=== PATIENT | female | born 1960 | race Two or more races ===

== ENCOUNTER 2021-01-04 19:53 | Emergency (ER) | payer MEDICARE, SELFPAY ==
--- NOTE | ~2021-01-04 | XR_ITS ---
EXAMINATION: XR LUMBOSACRAL SPINE CLINICAL INFORMATION: L4-L5 pain COMPARISON: None TECHNIQUE: Three views of the lumbosacral spine. FINDINGS: Degenerative changes noted throughout the lumbosacral spine. Disc space narrowing most marked at L2-L3. There is grade 1 anterolisthesis of L5 upon S1. Multiple surgical clips noted in the left abdomen and pelvis. XR/XR lumbar spine 2-3V IMPRESSION: Degenerative changes lumbosacral spine. Grade 1 anterolisthesis of L5 upon S1.
[2021-01-04 20:08] VITALS: BP 127/79; PULSE 86; RESP 18; TEMP 36.8; O2SAT 95; BMI 23.8
--- NOTE | 2021-01-04 21:26 | ED.BACK ---
HPI - Back Pain/Injury General Chief Complaint: Back Pain/Injury Stated Complaint: Lower back pain Time Seen by Provider: 01/04/21 21:25 Source: patient Mode of arrival: ambulatory Limitations: no limitations History of Present Illness HPI Narrative: Patient lifting and pushing fence about 2 weeks ago since then noticed pain in the right lower back radiating to the right leg with no prior history of back problems. Patient denied any incontinence of bowels or urine. No paresthesia no motor weakness pain gets worse when patient goes upstairs, no fever no chills no urinary complaints Related Data Previous Rx's Medication Instructions Recorded cyclobenzaprine 10 mg PO Q8H #20 tab 01/04/21 oxycodone 5 mg PO Q6H PRN #20 tab 01/04/21 prednisone 40 mg PO DAILY #10 tab 01/04/21 Allergies Allergy/AdvReac Type Severity Reaction Status Date / Time aspirin [ASPIRIN] Allergy Unknown STOMACH Verified 01/04/21 20:07 UPSET lactose [LACTOSE] Allergy Unknown DIARRHEA,PA Verified 01/04/21 20:07 IN Sulfa (Sulfonamide Allergy Unknown ANGIOEDEMA Verified 01/04/21 20:07 Antibiotics) [SULFA (SULFONAMIDE ANTIBIOTICS)] venlafaxine [From EFFEXOR] Allergy Unknown TONGUE Verified 01/04/21 20:07 SWELLING Review of Systems Review of Systems: Constitutional : No Weight loss, No Fever, No Chills ENT/Mouth : No sore throat, No Rhinorrhea Eyes: No Eye Pain, No Swelling Cardiovascular : No Chest Pain, no palpitations Respiratory : No Cough, No Sputum, no shortness of breath Gastrointestinal : no Nausea, No Vomiting, No Diarrhea, No abdominal Pain, no black stools Genitourinary : No Dysuria, No Urinary Frequency Musculoskeletal : No joint pain, No Myalgias, No Joint Swelling Skin : No Skin Lesions, No rash Neuro : No Weakness, No Numbness, No Dizziness, No Headache Psych : No Anxiety/Panic, No Depression Heme/Lymph: No Bruising, No Lymphadenopathy Endocrine : No Polyuria, No Polydipsia All other systems reviewed and are negative [facility] Past Medical History Surgical History H/O hernia repair H/O: hysterectomy Social History Social History Advance Directives: No Advance Directives Information Provided: Yes Physical Exam Vital Signs: Vital Signs: Last Vital Signs Temp 98.2 F 01/04/21 20:08 Pulse 86 01/04/21 20:08 Resp 20 01/04/21 22:26 BP 127/79 01/04/21 20:08 Pulse Ox 95 01/04/21 20:08 Body Mass Index 23.8 Const: General: well developed, alert and in distress moderate Orientation/consciousness: patient oriented x3 HENMT: Head: Yes normocephalic Eyes: General: appearance normal, both eyes and all related structures Neck: Neck: Yes normal visual inspection and Yes full ROM Chest: Chest palpation & inspection: normal inspection of the chest Resp: Effort & Inspection: normal respiratory effort Auscultation: clear to auscultation bilaterally, no crackles and no rales Cardio: Jugular venous distension: no JVD Palpation: normal PMI Rate: regular rate Rhythm: regular rhythm Heart sounds: S1 normal heart sound present and S2 normal heart sound present Peripheral pulses: Peripheral pulses 2+ throughout GI: Inspection: Yes normal to inspection Palpation (GI): Soft to palpation and nontender Auscultation: normal bowel sounds : General: Yes no CVA tenderness Back/Spine/Pelvis: Back: no CVA tenderness Thoracic/Lumbar Spine: straight leg raise positive right at 50 degrees Pelvis: sciatic notch tenderness on the right Back/spine/pelvis image: 1. R sciatic notch tenderness no focal spinal tenderness Skin: General skin exam: no rashes or lesions noted Neuro: General: patient oriented x3, gait normal and no focal motor deficits Extrem: General: Yes normal to inspection MDM - Back Pain/Injury MDM Narrative Medical decision making narrative: Patient with right sciatic pain x-ray negative for any acute pathology likely from [facility] from muscle spasm. Will discharge patient home on pain medication muscle relaxant and short course of prednisone patient is feeling much better after pain medication the ER Differential Diagnosis Differential diagnosis: Likely strain of lumbar region Discharge Plan Discharge Clinical Impression: Sciatica Qualifiers: Laterality: right Qualified Code(s): M54.31 - Sciatica, right side Patient Disposition: Home, Self-Care Instructions: Sciatica (ED) Additional Instructions: Rest at home Take pain medication as advised. Follow up with PCP if not better Prescriptions: New cyclobenzaprine 10 mg tablet 10 mg PO Q8H Qty: 20 RF: 0 oxycodone 5 mg tablet 5 mg PO Q6H PRN (Reason: pain) Qty: 20 RF: 0 prednisone 20 mg tablet 40 mg PO DAILY Qty: 10 RF: 0
--- NOTE | 2021-01-04 21:47 | PC.NURSE ---
Patient away for imaging. Plan to medicate upon return to ED bed 16.
[2021-01-04 22:26] VITALS: RESP 20
[2021-01-04] MEDS: Morphine Sulfate 4 MG/ML CARTRIDGE IM (22:26)
[2021-01-04] MEDS: dexAMETHasone 2 MG TABLET 10 MG PO (22:27)
[2021-01-04] MEDS: Cyclobenzaprine HCl 10 MG TABLET PO (22:27)
== END 2021-01-04 23:30 | disposition home or self-care (01) ==
PROVIDERS: Emergency Provider Internal Medicine; PCP Internal Medicine Geriatric Medicine
DX: M54.41 Lumbago with sciatica, right side (principal)
CPT/HCPCS: 72100; 96372; 99283; 99284; J2270; J8540

== ENCOUNTER 2022-01-09 10:08 | Outpatient (REF) | payer OTHER, SELFPAY ==
--- NOTE | ~2022-01-09 | XR_ITS ---
EXAMINATION: XR CHEST CLINICAL INFORMATION: Acute bronchitis, fever, chills and SOB COMPARISON: None TECHNIQUE: 2 views of the chest were obtained. FINDINGS: The lungs are well-expanded and clear. The heart size and pulmonary vascularity is normal. There is platelike atelectasis right middle lobe. No gross bony abnormality seen. XR/XR chest 2V IMPRESSION: Platelike atelectasis right middle lobe.
== END 2022-01-09 10:09 | disposition home or self-care (01) ==
LOC: HO.XRAY 10:08
PROVIDERS: Absent Provider Internal Medicine Geriatric Medicine; PCP Internal Medicine Geriatric Medicine; Visit Provider Emergency Medicine
DX: J20.9 Acute bronchitis, unspecified (principal)
CPT/HCPCS: 71046

== ENCOUNTER 2022-12-03 11:33 | Outpatient (REF) | payer OTHER, SELFPAY ==
--- NOTE | ~2022-12-03 | XR_ITS ---
EXAMINATION: XR ELBOW, LEFT CLINICAL INFORMATION: Pain COMPARISON: None available. TECHNIQUE: AP, lateral, and oblique views of the left elbow. FINDINGS: The bones and soft tissues are normal. No fracture or joint effusion. Alignment is anatomic. Joint spaces are maintained. XR/XR elbow LT 2V IMPRESSION: No significant osseous changes to explain patient's pain symptoms.
== END 2022-12-03 11:34 | disposition home or self-care (01) ==
LOC: HO.XRAY 11:33
PROVIDERS: PCP Internal Medicine Geriatric Medicine; Visit Provider Internal Medicine Geriatric Medicine
DX: M25.522 Pain in left elbow (principal)
CPT/HCPCS: 73070

== ENCOUNTER 2023-04-15 11:30 | Outpatient (REF) | payer OTHER, SELFPAY ==
[2023-04-15 13:46] LABS: MANUAL DIFF FLAG NO
[2023-04-15 13:57] LABS: Basophils Absolute Auto 0.1 X10*3/uL (0.0-0.2); Basophils Percent Auto 0.8 % (0-2); Eosinophils Absolute Auto 0.3 X10*3/uL (0.0-0.4); Eosinophils Percent Auto 3.4 % (0-4); Hematocrit 41.2 % (37.0-47.0); Imm Gran Abs Auto 0.03 X10*3/uL (0.00-0.03); Imm Gran Pct Auto 0.3 % (0.0-0.4); Lymphocytes Absolute Auto 3.2 X10*3/uL (1.2-4.9); Lymphocytes Percent Auto 35.5 % (20-40); Mean Corpuscular HGB Conc 31.6 g/dl (31.0-35.0); Mean Corpuscular Hemoglobin 29.5 pg (27.0-33.0); Mean Corpuscular Volume 93.6 fL (80.0-98.0); Mean Platelet Volume 10.2 fL (9.4-12.3); Monocytes Absolute Auto 0.5 X10*3/uL (0.1-1.2); Monocytes Percent Auto 5.9 % (2-11); Neutrophils Absolute Auto 4.9 x10*3/uL (2.0-8.3); Neutrophils Percent Auto 54.1 % (45-73); Platelet Count 320 X10*3/uL (160-400)
[2023-04-15 14:55] LABS: Alanine Aminotransferase 20 U/L (0-31); Albumin Level 4.1 g/dL (3.5-5.0); Alkaline Phosphatase 104 U/L (39-117); Anion Gap 12 (12-20); Aspartate Amino Transferase 20 U/L (5-31); Bilirubin Total 0.5 mg/dL (0.0-1.0); Blood Urea Nitrogen 16 mg/dL (9-16); Calcium 10.1 mg/dL (8.4-10.2); Carbon Dioxide 27 mmol/L (22-29); Chloride 107 mmol/L (96-108); Estimated Glomerular Filt Rate > 60; Glucose Random 81 mg/dL (60-115); Iron 166 mcg/dL (30-160); Percent Iron Saturation 39 % (15-50); Potassium 4.4 mmol/L (3.3-5.1); Sodium 142 mmol/L (135-145); Total Iron Binding Capacity 422 mcg/dL (228-428); Total Protein 6.9 g/dL (6.5-8.0); Unsaturated Iron Binding 256 ug/dL
[2023-04-15 15:02] LABS: Folate 11.3 ng/mL (> or = 4.0); Vitamin B12 851 pg/mL (200-900)
[2023-04-17 21:53] LABS: TS Negative Control Passed; TS Panel A 0; TS Panel B 4; TS Positive Control Passed; TSpotTB Negative (Negative)
== END 2023-04-15 11:31 | disposition home or self-care (01) ==
LOC: HO.HHCL 11:30
PROVIDERS: Visit Provider Internal Medicine Geriatric Medicine
DX: M25.562 Pain in left knee (principal); M25.561 Pain in right knee; R29.6 Repeated falls; Z98.84 Bariatric surgery status; Z11.1 Encounter for screening for respiratory tuberculosis
CPT/HCPCS: 36415; 80053; 82607; 82746; 83540; 84425; 85025; 86481

== ENCOUNTER 2023-04-16 10:22 | Outpatient (REF) | payer OTHER, SELFPAY ==
[2023-04-19 04:49] LABS: TS Negative Control Passed; TS Panel A 0; TS Panel B 1; TS Positive Control Passed; TSpotTB Negative (Negative)
[2023-04-21 22:03] LABS: Vitamin B1 8 nmol/L (8-30)
== END 2023-04-16 10:23 | disposition home or self-care (01) ==
LOC: HO.HHCL 10:22
PROVIDERS: Visit Provider Internal Medicine Geriatric Medicine
DX: Z11.1 Encounter for screening for respiratory tuberculosis (principal); M25.561 Pain in right knee; M25.562 Pain in left knee; R29.6 Repeated falls; Z98.84 Bariatric surgery status
CPT/HCPCS: 36415; 84425; 86481

== ENCOUNTER 2023-12-29 08:23 | Outpatient (REF) | payer OTHER, SELFPAY ==
[2023-12-29 11:34] LABS: MANUAL DIFF FLAG NO
[2023-12-29 11:43] LABS: Basophils Absolute Auto 0.1 X10*3/uL (0.0-0.2); Basophils Percent Auto 0.7 % (0-2); Eosinophils Absolute Auto 0.4 X10*3/uL (0.0-0.4); Eosinophils Percent Auto 4.5 % (0-4); Hematocrit 42.3 % (37.0-47.0); Hemoglobin 14.1 g/dl (12.0-16.0); Imm Gran Abs Auto 0.02 X10*3/uL (0.00-0.03); Imm Gran Pct Auto 0.2 % (0.0-0.4); Lymphocytes Absolute Auto 2.5 X10*3/uL (1.2-4.9); Lymphocytes Percent Auto 28.8 % (20-40); Mean Corpuscular HGB Conc 33.3 g/dl (31.0-35.0); Mean Corpuscular Hemoglobin 30.9 pg (27.0-33.0); Mean Corpuscular Volume 92.6 fL (80.0-98.0); Mean Platelet Volume 10.3 fL (9.4-12.3); Monocytes Absolute Auto 0.5 X10*3/uL (0.1-1.2); Monocytes Percent Auto 5.5 % (2-11); Neutrophils Absolute Auto 5.3 x10*3/uL (2.0-8.3); Neutrophils Percent Auto 60.3 % (45-73); Platelet Count 312 X10*3/uL (160-400); Red Blood Count 4.57 X10*6/uL (4.20-5.50); Red Cell Distribution Width 14.7 % (11.0-16.0); White Blood Count 8.7 X10*3/uL (4.8-10.8)
[2023-12-29 12:25] LABS: Parathyroid Hormone Intact 76.8 pg/mL (8.7-77.1)
[2023-12-29 12:30] LABS: Alanine Aminotransferase 18 U/L (0-31); Albumin Level 4.3 g/dL (3.5-5.0); Alkaline Phosphatase 119 U/L (39-117); Anion Gap 10 (12-20); Aspartate Amino Transferase 19 U/L (5-31); Bilirubin Total 0.4 mg/dL (0.0-1.0); Blood Urea Nitrogen 17 mg/dL (9-16); Calcium 9.8 mg/dL (8.4-10.2); Carbon Dioxide 27 mmol/L (22-29); Chloride 109 mmol/L (96-108); Cholesterol 189 mg/dL (<200); Estimated Glomerular Filt Rate > 60; Glucose Random 103 mg/dL (60-115); HDL Cholesterol 63 mg/dL (>40); LDL Cholesterol Calculated 115 mg/dL (<100); Potassium 3.8 mmol/L (3.3-5.1); Sodium 142 mmol/L (135-145); Total Protein 7.4 g/dL (6.5-8.0); Triglycerides 57 mg/dL (<150)
[2023-12-29 12:46] LABS: Vitamin D 25-OH Total 44.8 ng/mL (>30)
[2023-12-29 12:53] LABS: Folate 12.4 ng/mL (> or = 4.0); Vitamin B12 748 pg/mL (200-900)
[2023-12-30 04:39] LABS: HIV AB/AG Nonreactive (Nonreactive); HIV Num 1 0.04 S/CO (0.00-0.99); ~HepC Num1 0.08 S/CO (0.00-0.79); ~Hepatitis C Antibody Nonreactive (Nonreactive)
== END 2023-12-29 08:24 | disposition home or self-care (01) ==
LOC: HO.HHCL 08:23
PROVIDERS: Visit Provider Internal Medicine Geriatric Medicine
DX: J45.20 Mild intermittent asthma, uncomplicated (principal); Z98.84 Bariatric surgery status; J30.2 Other seasonal allergic rhinitis; R42 Dizziness and giddiness; M54.50 Low back pain, unspecified; J45.909 Unspecified asthma, uncomplicated; M54.2 Cervicalgia; Z11.59 Encounter for screening for other viral diseases; Z11.4 Encounter for screening for human immunodeficiency virus [HIV]
CPT/HCPCS: 36415; 80053; 80061; 82306; 82607; 82746; 83970; 84425; 85025; 86803; 87389

== ENCOUNTER 2024-01-13 08:45 | Outpatient (REF) | payer OTHER, SELFPAY ==
[2024-01-18 15:37] LABS: Vitamin B1 16 nmol/L (8-30)
== END 2024-01-13 08:46 | disposition home or self-care (01) ==
LOC: HO.HHCL 08:45
PROVIDERS: Visit Provider Internal Medicine Geriatric Medicine
DX: Z00.00 Encounter for general adult medical examination without abnormal findings (principal)
CPT/HCPCS: 36415; 84425

== ENCOUNTER 2024-04-20 11:08 | Outpatient (REF) | payer OTHER, SELFPAY ==
[2024-04-20 13:21] LABS: MANUAL DIFF FLAG NO
[2024-04-20 13:46] LABS: Basophils Absolute Auto 0.1 X10*3/uL (0.0-0.2); Basophils Percent Auto 0.6 % (0-2); Eosinophils Absolute Auto 0.1 X10*3/uL (0.0-0.4); Eosinophils Percent Auto 0.7 % (0-4); Hematocrit 40.6 % (37.0-47.0); Hemoglobin 13.7 g/dl (12.0-16.0); Imm Gran Abs Auto 0.03 X10*3/uL (0.00-0.03); Imm Gran Pct Auto 0.3 % (0.0-0.4); Lymphocytes Absolute Auto 2.1 X10*3/uL (1.2-4.9); Lymphocytes Percent Auto 24.2 % (20-40); Mean Corpuscular HGB Conc 33.7 g/dl (31.0-35.0); Mean Corpuscular Hemoglobin 30.6 pg (27.0-33.0); Mean Corpuscular Volume 90.8 fL (80.0-98.0); Mean Platelet Volume 10.3 fL (9.4-12.3); Monocytes Absolute Auto 0.5 X10*3/uL (0.1-1.2); Monocytes Percent Auto 5.5 % (2-11); Neutrophils Absolute Auto 5.9 x10*3/uL (2.0-8.3); Neutrophils Percent Auto 68.7 % (45-73); Platelet Count 334 X10*3/uL (160-400); Red Blood Count 4.47 X10*6/uL (4.20-5.50); Red Cell Distribution Width 14.4 % (11.0-16.0); White Blood Count 8.7 X10*3/uL (4.8-10.8)
[2024-04-20 13:58] LABS: Alanine Aminotransferase 16 U/L (0-31); Albumin Level 4.3 g/dL (3.5-5.0); Alkaline Phosphatase 115 U/L (39-117); Anion Gap 15 (12-20); Aspartate Amino Transferase 18 U/L (5-31); Bilirubin Total 0.6 mg/dL (0.0-1.0); Blood Urea Nitrogen 14 mg/dL (9-16); Calcium 10.1 mg/dL (8.4-10.2); Carbon Dioxide 23 mmol/L (22-29); Chloride 107 mmol/L (96-108); Estimated Glomerular Filt Rate > 60; Glucose Random 98 mg/dL (60-115); Magnesium 2.1 mg/dL (1.6-2.6); Potassium 3.8 mmol/L (3.3-5.1); Sodium 141 mmol/L (135-145); Total Protein 7.1 g/dL (6.5-8.0)
[2024-04-20 14:04] LABS: TSH reflex Free T4 0.54 uIU/mL (0.32-4.0)
== END 2024-04-20 11:09 | disposition home or self-care (01) ==
LOC: HO.HHCL 11:08
PROVIDERS: Visit Provider Internal Medicine Geriatric Medicine
DX: R25.2 Cramp and spasm (principal)
CPT/HCPCS: 36415; 80053; 83735; 84443; 85025

== ENCOUNTER 2024-05-10 09:36 | Outpatient (REF) | payer OTHER, SELFPAY ==
--- NOTE | 2024-05-10 09:48 | EMG_ITS ---
Bilateral median and ulnar motor and sensory studies were performed. Bilateral radial and median and lateral antecubital brachial sensory studies were performed, and paraspinal muscles were tested with a needle. IMPRESSION: 1. Mild bilateral median neuropathy across carpal tunnel. 2. Chronic right mid cervical radiculopathy. MD GIDEON Peres/[facility] / [phone]
== END 2024-05-10 09:37 | disposition home or self-care (01) ==
LOC: HO.NEURO 09:36
PROVIDERS: PCP Internal Medicine Geriatric Medicine; Visit Provider Internal Medicine Geriatric Medicine
DX: R20.0 Anesthesia of skin (principal)
CPT/HCPCS: 95886; 95913

== ENCOUNTER 2024-06-15 09:31 | Outpatient (AMB) | payer OTHER, SELFPAY ==
--- NOTE | 2024-06-15 10:27 | A.OFFVIS_ITS ---
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 EMG done on 05/10/2024. Patient reports her bilateral thumbs get stuck and she feels numbness and tingling in all her digits and her bilateral wrist. She expresses difficulty with lifting, gripping, and grasping. She says she has no strength to hold objects causing her to drop them. When she tries to move her thumb she reports pain at her CMC joint and has concerns of them becoming deformed. Her symptoms are radiating up her are into her neck as well. If she needs surgery she would pick the left hand first due to not having a lot of help at home. Patient has tried PT, braces and over the counter medication and these provided no relief. She think PT made her symptoms worse. 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 Patient reports that her symptoms have been ongoing for many years. Patient reports that her numbness and tingling are intermittent, but daily, and worse at night, and are often associated with significant discomfort of the bilateral hands. The patient also reports that she has been experiencing diffuse joint pain throughout her body, as well as issues with her cervical spine. No other acute complaints or concerns at this time. COUNTS INCLUDE 234 BEDS AT THE [facility] Surgical History H/O hernia repair H/O: hysterectomy Social History (Updated 06/15/24 @ 10:32 by ADITI Gil) Alcohol intake: current Alcohol intake frequency: holidays/special occasions only Patient Tobacco Use Status: Former Tobacco user Current occupational status: disabled Current occupation: right handed Review of Systems Const All systems reviewed & are unremarkable except as noted in HPI and below Physical Exam Vital Signs: BMI result Body Mass Index 23.8 Extrem Other: Neuro: Normal sensation of the tips of all digits of bilateral hands at this time No thenar or intrinsic wasting. Good APB muscle firing and good finger cross bilaterally Vascular: Capillary refill brisk. ROM: Patient can make a fist and extend all their digits bilaterally Skin: No lacerations or abrasions noted. General: No ecchymosis. No erythema or evidence of infection. Results Reviewed Results Reviewed: IMPRESSION: 1. Mild bilateral median neuropathy across carpal tunnel. 2. Chronic right mid cervical radiculopathy. MD GIDEON Peres/[facility] Assessment & Plan Assessment & Plan (1) Carpal tunnel syndrome, bilateral: Code(s): G56.03 - Carpal tunnel syndrome, bilateral upper limbs Category: Medical Plan 1. Carpal tunnel syndrome, right Symptoms intermittent, but daily, worse at night I educated the patient about the condition. I discussed both operative and nonoperative treatment options. The patient would like to proceed with surgery. The risks and benefits of operative treatment were discussed with the patient and the patient wishes to proceed with surgery. These risks include, but are not limited to, risk of damage to blood vessels, nerves, tendons, infection, recurrence, incomplete relief of preoperative symptoms, persistent pain, possible need for further surgery, and the risks associated with regional blocks and/or anesthesia. Plan is to take the patient to the operating room at some point in the next few weeks for the following procedures: 1. Right carpal tunnel release under local anesthesia All of the preoperative paperwork including the consent was discussed today. All of the patient's questions were answered in the clinic today. The patient understands that they will be in contact with our environmental program manager to discuss scheduling their procedure. Patient denies diabetes, blood thinners, asthma, heart issues, lung issues, kidney issues, or current smoking. 2. Carpal tunnel syndrome, left Symptoms intermittent, but daily, worse at night This time, the patient would like to proceed with operative treatment on the right prior to any treatment to the left, as she finds the right side more bothersome as this is her dominant hand Patient was informed that if she is recovering well in her postoperative visit after right carpal tunnel release, we can get the left side signed up for surgery at that time Patient was amenable to this Patient will follow-up as needed with any acute concerns Medications: Discontinued prednisone Discontinued Reason: Patient no longer taking 40 mg (2 x 20 mg) PO DAILY 10 tabs 0RF oxycodone Discontinued Reason: Patient no longer taking 5 mg PO Q6H PRN 20 tabs 0RF pain cyclobenzaprine Discontinued Reason: Patient no longer taking 10 mg PO Q8H 20 tabs 0RF Coding Level of Care Code New Pt Level 4 (53381) Diagnoses Carpal tunnel syndrome, bilateral G56.03
[2024-06-15 10:31] VITALS: BMI 23.8
== END 2024-06-15 11:23 | disposition home or self-care (01) ==
PROVIDERS: PCP Internal Medicine Geriatric Medicine
DX: G56.03 Carpal tunnel syndrome, bilateral upper limbs (principal)
CPT/HCPCS: 99204

== ENCOUNTER → 2024-06-15 09:31 | Outpatient (BNVA) | payer OTHER, SELFPAY | PROVIDERS: PCP Internal Medicine Geriatric Medicine | DX: G56.03 Carpal tunnel syndrome, bilateral upper limbs (principal) | CPT/HCPCS: 99202 ==